=== PATIENT | female | born 1960 | race African-American/Black ===

== ENCOUNTER → 2020-07-30 | Outpatient (CLI) | payer BC, OTHER | LOC: LAB 11:51 | DX: Z11.1 Encounter for screening for respiratory tuberculosis (principal); D89.89 Other specified disorders involving the immune mechanism, not elsewhere classified; R76.8 Other specified abnormal immunological findings in serum; M25.50 Pain in unspecified joint; M25.562 Pain in left knee; M25.561 Pain in right knee; M17.0 Bilateral primary osteoarthritis of knee | CPT/HCPCS: 36415; 73565 ==

== ENCOUNTER → 2020-12-25 | Outpatient (CLI) | payer BC ==
[2020-12-25 14:07] LABS: HEMOGLOBIN 13.7 gm/dl (12.3-15.3); RED BLOOD COUNT 4.64 M/UL (4.00-5.10); WHITE BLOOD COUNT 8.1 K/UL (4.5-11.0)
[2020-12-25 14:39] LABS: BUN/CREATININE RATIO 19 (0-10)
[2020-12-26 09:13] LABS: VITAMIN D, 25-HYDROXY 29.6 ng/mL (30.0-100.0)
== END ==
LOC: LAB 13:22
PROVIDERS: Family Medicine
DX: E78.5 Hyperlipidemia, unspecified (principal); I10 Essential (primary) hypertension; E55.9 Vitamin D deficiency, unspecified
CPT/HCPCS: 36415; 80053; 80061; 84439; 84443; 84481; 85027